=== PATIENT | female | born 1990 | race Caucasian/White ===

== ENCOUNTER 2017-03-10 09:30 | Emergency (ER) | payer OTHER ==
[~2017-03-10] VITALS: Ht 167.6 cm; Wt 63.5 kg
[2017-03-10 11:03] VITALS: BP 120/74
== END 2017-03-10 11:03 | disposition home or self-care (01) ==
LOC: ED 09:30
DX: S05.01XA Injury of conjunctiva and corneal abrasion without foreign body, right eye, initial encounter (principal); X58.XXXA Exposure to other specified factors, initial encounter; Y93.89 Activity, other specified; Y99.8 Other external cause status; Y92.89 Other specified places as the place of occurrence of the external cause

== ENCOUNTER 2017-08-05 21:53 | Emergency (ER) | payer OTHER ==
[~2017-08-05] VITALS: Ht 167.6 cm; Wt 68.5 kg
[2017-08-05 21:56] VITALS: Ht 167.6 cm; Wt 68.5 kg
[2017-08-06 00:39] VITALS: BP 126/84
== END 2017-08-06 00:39 | disposition home or self-care (01) ==
LOC: ED 21:53
DX: L03.112 Cellulitis of left axilla (principal)
CPT/HCPCS: J0696; J1885; Q0163

== ENCOUNTER 2017-08-08 21:28 | Emergency (ER) | payer OTHER ==
[~2017-08-08] VITALS: Ht 167.6 cm; Wt 67.6 kg
[2017-08-08 21:33] VITALS: Ht 167.6 cm; Wt 67.6 kg
[2017-08-08 23:26] VITALS: BP 102/67
== END 2017-08-08 23:26 | disposition home or self-care (01) ==
LOC: ED 21:28
DX: L02.412 Cutaneous abscess of left axilla (principal); L72.3 Sebaceous cyst
CPT/HCPCS: J2001